=== PATIENT | male | born 1950 | race Caucasian/White ===

== ENCOUNTER 2016-10-01 11:38 | Emergency (ER) | payer MEDICARE ==
[~2016-10-01] VITALS: Ht 172.7 cm; Wt 88.5 kg
[~2016-10-01 11:38] MED LIST: ASPIRIN81 M1 PO; CITALOPRAM HYDR20 MG PO; HYDROXYZINE HCL50 MG PO; LAMICTAL200 MG PO; LIPITOR40 MG PO; LISINOPRIL HCTZ1 TA1 PO; MULTI VITAMINS1 TAB PO; PREDNISONE10 MG PO; RISPERDAL4 M1 PO; RISPERIDONE0.5 MG PO; TRAZODONE150 MG PO; VENTOLIN H0.09 MG/AC INH; ZITHROMAX500 MG PO; ZOFRAN4 MG PO
[2016-10-01 12:11] LABS: BASO # 0.1 10*3/uL (0.0-0.1); BASO % 0.4 % (0.0-1.0); EOS # 0.3 10*3/uL (0.0-0.4); EOS % 2.3 % (1.0-4.0); HEMATOCRIT 38.5 % (42.0-52.0); HEMOGLOBIN 12.8 g/dl (14.0-18.0); IG # 0.2 10*3/uL (0.0-0.1); LYMPH # 1.9 10*3/uL (1.3-4.4); LYMPH % 16.8 % (27.0-41.0); MEAN CELL VOLUME 92.3 fl (80.0-94.0); MEAN CORPUSCULAR HGB 30.7 pg (27.0-31.0); MEAN CORPUSCULAR HGB CONC 33.2 g/dl (33.0-37.0); MEAN PLATELET VOLUME 8.5 fl (9.6-12.3); MONO # 1.4 10*3/uL (0.1-1.0); MONO % 12.6 % (3.0-9.0); NEUT # 7.6 10*3/uL (2.3-7.9); NEUT % 66.5 % (47.0-73.0); PLATELET COUNT AUTOMATED 331 10*3/uL (130-400); RED BLOOD COUNT 4.17 10*6/uL (4.50-5.90); RED CELL DISTRI WIDTH 12.4 % (0-14.5); WHITE BLOOD COUNT 11.4 10*3/uL (4.8-10.8)
[2016-10-01 12:28] LABS: BUN 10 mg/dl (7-24); CARBON DIOXIDE 29 mmol/L (21-32); CHLORIDE 103 mmol/L (98-107); EST GLOM FILT AFRICAN AMERICAN > 60 ml/min; GLUCOSE 113 mg/dL (65-99); POTASSIUM 4.7 mmol/L (3.5-5.1); SODIUM 140 mmol/L (136-145)
[2016-10-01 12:29] LABS: TROPONIN I < 0.015 ng/ml (<0.045)
== END 2016-10-01 17:38 | disposition short-term general hospital (02) ==
LOC: ED 11:38
PROVIDERS: Emergency Medicine
DX: I26.99 Other pulmonary embolism without acute cor pulmonale (principal); F41.9 Anxiety disorder, unspecified; I10 Essential (primary) hypertension; E78.00 Pure hypercholesterolemia, unspecified; F32.9 Major depressive disorder, single episode, unspecified; E66.9 Obesity, unspecified; F17.210 Nicotine dependence, cigarettes, uncomplicated; Z98.3 Post therapeutic collapse of lung status; Z79.899 Other long term (current) drug therapy; Z79.82 Long term (current) use of aspirin; Z90.89 Acquired absence of other organs; Z85.118 Personal history of other malignant neoplasm of bronchus and lung

== ENCOUNTER 2017-10-25 16:03 | Inpatient (IN) | payer MEDICARE ==
[~2017-10-25] VITALS: Ht 172.7 cm; Wt 99.0 kg
[2017-10-25 16:03] VITALS: BP 133/85
[2017-10-25 18:14] LABS: BASO % 0.4 % (0.0-1.0); EOS # 0.1 10*3/uL (0.0-0.4); EOS % 0.8 % (1.0-4.0); HEMATOCRIT 38.3 % (42.0-52.0); LYMPH # 2.4 10*3/uL (1.3-4.4); MEAN CELL VOLUME 92.1 fl (80.0-94.0); MEAN CORPUSCULAR HGB 31.3 pg (27.0-31.0); MEAN CORPUSCULAR HGB CONC 33.9 g/dl (33.0-37.0); MONO # 1.4 10*3/uL (0.1-1.0); MONO % 14.2 % (3.0-9.0); NEUT % 60.1 % (47.0-73.0); PLATELET COUNT AUTOMATED 236 10*3/uL (130-400); RED BLOOD COUNT 4.16 10*6/uL (4.50-5.90); RED CELL DISTRI WIDTH 12.3 % (0-14.5); WHITE BLOOD COUNT 9.9 10*3/uL (4.8-10.8)
[2017-10-25 18:23] LABS: INTERNATIONAL NORM RATIO 0.9 (2.0-3.5)
[2017-10-25 18:31] LABS: ALBUMIN 3.7 gm/dl (3.1-4.5); ALKALINE PHOSPHATASE 98 U/L (45-117); BUN 21 mg/dl (7-24); CHLORIDE 102 mmol/L (98-107); POTASSIUM 3.8 mmol/L (3.5-5.1); SGOT/AST 12 IU/L (3-35); SGPT/ALT 20 U/L (12-78); SODIUM 138 mmol/L (136-145); TOTAL PROTEIN 7.4 gm/dL (6.4-8.2)
[2017-10-25] MEDS ORDERED: ARNUITY ELLIP100 MCG INH (19:01)
[2017-10-25] MEDS ORDERED: LOPRESSOR25 MG PO (19:02)
[2017-10-25] MEDS ORDERED: NATURE'S BLEND F1 MG PO (19:02)
[2017-10-25] MEDS ORDERED: HYDROXYZINE PAM50 MG PO (19:03)
[2017-10-25] MEDS ORDERED: HYDROCHLOROTHIA25 M1 PO (19:04)
[2017-10-25 20:00] VITALS: BP 132/70
[2017-10-26] VITALS: BP 164/76
[2017-10-26 06:43] LABS: BASO % 0.4 % (0.0-1.0); EOS # 0.1 10*3/uL (0.0-0.4); EOS % 1.3 % (1.0-4.0); HEMATOCRIT 37.3 % (42.0-52.0); HEMOGLOBIN 12.6 g/dl (14.0-18.0); LYMPH # 3.2 10*3/uL (1.3-4.4); LYMPH % 36.2 % (27.0-41.0); MEAN CELL VOLUME 91.9 fl (80.0-94.0); MEAN CORPUSCULAR HGB CONC 33.8 g/dl (33.0-37.0); MONO # 1.2 10*3/uL (0.1-1.0); MONO % 13.9 % (3.0-9.0); NEUT # 4.3 10*3/uL (2.3-7.9); NEUT % 47.6 % (47.0-73.0); PLATELET COUNT AUTOMATED 228 10*3/uL (130-400); RED BLOOD COUNT 4.06 10*6/uL (4.50-5.90); RED CELL DISTRI WIDTH 12.3 % (0-14.5)
[2017-10-26 07:29] LABS: CHLORIDE 103 mmol/L (98-107); POTASSIUM 3.5 mmol/L (3.5-5.1); SODIUM 140 mmol/L (136-145)
[2017-10-26 07:49] LABS: BUN 20 mg/dl (7-24); CHOLESTEROL 271 mg/dL (<200); CREATININE 1.13 mg/dL (0.70-1.30); HDL CHOLESTEROL 38 mg/dl (40-60); LDL CHOLESTEROL 181 mg/dL (9-159); THYROID STIM HORMONE (HS) 0.733 uIU/ml (0.358-4.75); TRIGLYCERIDES 259 mg/dl (<150); VLDL CHOLESTEROL 52 mg/dL (6-40)
[2017-10-26 08:00] VITALS: BP 146/68
[2017-10-26 11:18] LABS: VITAMIN D, 25-HYDROXY 43.8 ng/mL (30-100)
[2017-10-26 12:00] VITALS: BP 127/73
[2017-10-26 16:00] VITALS: BP 132/76
[2017-10-26 20:00] VITALS: BP 147/68
[2017-10-27] VITALS: BP 155/79
[2017-10-27 08:00] VITALS: BP 144/80
[2017-10-27] MEDS ORDERED: SIMVASTATIN20 MG PO (11:49)
[2017-10-27] MEDS ORDERED: XARE15TA PO (11:49)
[2017-10-27] MEDS ORDERED: SEPTDS PO (11:49)
== END 2017-10-27 13:35 | disposition home or self-care (01) | DRG 300 ==
LOC: ED 16:03 → 4E 18:01 → EDHOLD 18:01 → 4E 18:16
PROVIDERS: Physician Assistant; Student in an Organized Health Care Education/Training Program
DX: I82.612 Acute embolism and thrombosis of superficial veins of left upper extremity (principal); L03.114 Cellulitis of left upper limb; C34.90 Malignant neoplasm of unspecified part of unspecified bronchus or lung; F33.9 Major depressive disorder, recurrent, unspecified; D72.810 Lymphocytopenia; D64.9 Anemia, unspecified; D72.821 Monocytosis (symptomatic); I10 Essential (primary) hypertension; F43.10 Post-traumatic stress disorder, unspecified; E78.5 Hyperlipidemia, unspecified; E66.9 Obesity, unspecified; F41.9 Anxiety disorder, unspecified; Z86.711 Personal history of pulmonary embolism; Z87.891 Personal history of nicotine dependence; Z81.8 Family history of other mental and behavioral disorders; Z79.82 Long term (current) use of aspirin; Z79.899 Other long term (current) drug therapy; Z82.49 Family history of ischemic heart disease and other diseases of the circulatory system; Z82.3 Family history of stroke; Z68.33 Body mass index [BMI] 33.0-33.9, adult